=== PATIENT | male | born 1995 | race African-American/Black ===

== ENCOUNTER 2017-07-30 02:54 | Emergency (ER) | payer OTHER ==
[2017-07-30 03:08] VITALS: BP 132/72
[2017-07-30] MEDS ORDERED: IPRATROPIUM/ALBUTEROL 0.5-2.5 MG/3 ML AMPUL NEB ONE (03:54)
[2017-07-30] MEDS ORDERED: PREDNISONE 20 MG TABLET PO ONE (03:54)
[2017-07-30] MEDS ORDERED: ALBUTEROL SULFATE 0.083% NEB 2.5 MG/3 ML AMPUL NEB SCH (04:09)
[2017-07-30] MEDS ORDERED: METHYLPREDNISOLONE INJ 125 MG/2 ML SDV IM ONE (04:10)
--- NOTE | 2017-07-30 04:16 | ER Document Report ---
HPI - HPI Pain Level: 4 Notes: Patient is a 21-year-old male with a history of seasonal allergies as well as asthma who presents to the ED complaining of an acute asthma flare when he woke up in the middle the night. Patient states that he does continue to have some wheezing, but is not coughing. Patient states that he already is feeling much better than before. He is eating and drinking without difficulties. He is urinating normally and having normal bowel movements. Patient states that he is from out of town and does not have his Xopenex inhaler, rescue inhaler, or albuterol nebulizer ampules. Patient states that he is able to ambulate without any dyspnea on exertion. He has no other concerns or complaints at this time. Denies any headache, fever, neck pain, URI, sore throat, chest pain , palpitations, syncope, cough, abdominal pain, nausea/vomiting/diarrhea, urinary retention, dysuria, hematuria, or rash. - ROS Systems Reviewed and Negative: Yes All other systems reviewed and negative Past Medical History - Social History Smoking Status: Former Smoker Family History: Reviewed & Not Pertinent Patient has suicidal ideation: No Patient has homicidal ideation: No Renal/ Medical History: Reports: Hx Peritoneal Dialysis Vertical Provider Document - CONSTITUTIONAL Agree With Documented VS: Yes Notes: PHYSICAL EXAMINATION: GENERAL: Well-appearing, well-nourished and in no acute distress. A&Ox4. Answers questions appropriately. Moves comfortably w/o notable distress HEAD: Atraumatic, normocephalic. EYES: Pupils equal round and reactive to light, extraocular movements intact, sclera anicteric, conjunctiva are normal. ENT: EAC clear b/l. TM's intact b/l without erythema, fluid, or perforation. Nares patent and without discharge. oropharynx no erythema without exudates. No tonsilar hypertrophy without erythema or exudate. No palatine shift. Uvula midline. No tongue protrusion. No drooling, hoarseness, or airway compromise. Moist mucous membranes. No sinus tenderness. NECK: Normal range of motion, supple without lymphadenopathy. No rigidity/ meningismus. LUNGS: Wheezes throughout, no crackles/rhonchi. No retractions. speaks in full sentences. HEART: Regular rate and rhythm without murmurs, rubs, gallops. NEUROLOGICAL: Normal speech, normal gait. Normal sensory, motor exams PSYCH: Normal mood, normal affect. SKIN: Warm, Dry, normal turgor, no rashes or lesions noted. - INFECTION CONTROL TRAVEL OUTSIDE OF THE [place] IN LAST 30 DAYS: No Course - Re-evaluation Re-evalutation: 07/30/17 04:48 Patient is an afebrile, well-hydrated, 21-year-old male who presents to the ED with an acute asthma exacerbation, currently stable. Vitals are acceptable. PE is otherwise unremarkable. Patient has no significant tachycardia, tachypnea , or hypoxia. He is nontoxic-appearing and is in no acute distress. Patient completed an albuterol breathing treatment as well as a DuoNeb breathing treatment and received 60 mg of prednisone. Patient's lung sounds are now clear to auscultation bilaterally. Patient states that he feels "awesome." No other labs or imaging warranted at this time based on H&P. Patient aware that his condition can change from initial presentation and he needs to monitor symptoms closely and seek medical attention with any acute changes. I will prescribe him his asthma medications as well as a prednisone taper. Recheck with your PCM in 3-5 days. Return to the ED with any worsening/concerning symptoms otherwise as reviewed discharge. Patient is in agreement. - Vital Signs Vital signs: Temp Pulse Resp BP Pulse Ox 98.5 F 90 18 132/72 H 94 07/30/17 03:07 07/30/17 03:07 07/30/17 03:07 07/30/17 03:07 07/30/17 03:07 Discharge - Discharge Clinical Impression: Acute asthma exacerbation Qualifiers: Asthma severity: mild Asthma persistence: intermittent Qualified Code(s): J45.21 - Mild intermittent asthma with (acute) exacerbation Condition: Stable Disposition: HOME, SELF-CARE Instructions: Asthma ([facility]), Inhaled Bronchodilators ([facility]) Additional Instructions: Maintain adequate fluid intake Take meds as directed tylenol/ibuprofen as needed over the counter cold medication as needed for symptoms Humidified air may help Wash your hands regularly F/u: with your PCM in 3-5 days for a recheck Return to the ED with any fever, worsening pain, chest pain, palpitations, syncope, worsening ZAFAR, neck pain/stiffness, shortness of breath, wheezing, drooling, trouble swallowing/breathing, abdominal pain, n/v/d, rash, or worsening/concerning symptoms otherwise. Prescriptions: Albuterol Sulfate [Albuterol Sulfate 2.5mg/3 mL] 1 vial IH Q4 PRN #10 vial PRN Reason: Levalbuterol Tartrate [Xopenex Hfa] 1 - 2 puff IH Q4H PRN #1 [id number].[id number] PRN Reason: Prednisone [Deltasone 20 mg Tablet] 1 tab PO ASDIR 5 Days #18 tablet Forms: Elevated Blood Pressure Referrals: FRANK NATHAN MD [ACTIVE STAFF] - Follow up as needed
== END 2017-07-30 05:10 | disposition home or self-care (01) ==
LOC: ER 02:54
DX: J45.21 Mild intermittent asthma with (acute) exacerbation (principal); Z87.891 Personal history of nicotine dependence
CPT/HCPCS: 94640; 99284; J7512; J7620